=== PATIENT | female | born 1980 | race Caucasian/White ===

== ENCOUNTER 2019-07-09 22:45 | Emergency (ER) | payer SELFPAY ==
--- NOTE | 2019-07-09 23:34 | ER Document Report ---
ED Medical Screen (RME) - General Chief Complaint: Finger Injury Stated Complaint: RIGHT FINGER INJURY Time Seen by Provider: 07/09/19 23:31 Primary Care Provider: ITALO DOYLE MD [Primary Care Provider] - Follow up as needed Mode of Arrival: Ambulatory Information source: Patient Notes: 39-year-old female presents emergency department with right fifth digit finger pain. Reports 4 days ago she went to grab her son grabbed his hoodie and jammed the finger. She reports it was swollen with ecchymosis first and also has erythema by the fingernail. No fingernail injury she reports the erythema was there to begin with. Patient is right-hand dominant. I have greeted and performed a rapid initial assessment of this patient. A comprehensive ED assessment and evaluation of the patient, analysis of test results and completion of the medical decision making process will be conducted by additional ED providers. Dictation of this chart was performed using voice recognition software; therefore, there may be some unintended grammatical errors. TRAVEL OUTSIDE OF THE [place] IN LAST 30 DAYS: No - Related Data Allergies/Adverse Reactions: carbamazepine [From Tegretol] Allergy (Verified 07/09/19 23:30) morphine [Morphine] Allergy (Verified 07/09/19 23:30) Facial edema and rash meperidine HCl [From Demerol] Adverse Reaction (Verified 07/09/19 23:30) Syncope Past Medical History - Social History Frequency of alcohol use: Occasional Renal/ Medical History: Reports: Hx Kidney Stones GI Medical History: Reports: Hx Irritable Bowel Psychiatric Medical History: Reports: Hx Anxiety, Hx Depression Past Surgical History: Reports: Hx Cholecystectomy, Hx Thyroid Surgery, Hx Tonsillectomy - Immunizations Immunizations up to date: No Hx Diphtheria, Pertussis, Tetanus Vaccination: No Physical Exam - Vital signs Vitals: Temp Pulse Resp BP Pulse Ox 98.3 F 81 20 152/89 H 98 07/09/19 22:58 07/09/19 22:58 07/09/19 22:58 07/09/19 22:58 07/09/19 22:58 Course - Vital Signs Vital signs: Temp Pulse Resp BP Pulse Ox 98.3 F 81 20 152/89 H 98 07/09/19 22:58 07/09/19 22:58 07/09/19 22:58 07/09/19 22:58 07/09/19 22:58 Doctor's Discharge - Discharge Referrals: ITALO DOYLE MD [Primary Care Provider] - Follow up as needed
--- NOTE | 2019-07-10 00:16 | RADIOLOGY REPORT (SQ) ---
EXAM DESCRIPTION: XR FINGERS COMPLETED DATE/TME: 07/09/2019 23:32 CLINICAL HISTORY: 39 years Female pain, swelling COMPARISON: None. TECHNIQUE: Right finger, three views FINDINGS: No acute fractures or dislocations are identified. No osseous destructive lesions. No radiopaque foreign object noted. IMPRESSION: No acute fracture is identified.
[2019-07-10] MEDS ORDERED: HYDROCODONE/ACETAMINOPHEN 5-325 MG (6 TAB/ER DISP) PO PRN (01:32)
--- NOTE | 2019-07-10 01:32 | ER Document Report ---
ED General - General Chief Complaint: Finger Injury Stated Complaint: RIGHT FINGER INJURY Time Seen by Provider: 07/09/19 23:31 Primary Care Provider: ITALO DOYLE MD [EMERITUS] - Follow up as needed Mode of Arrival: Ambulatory Information source: Patient Notes: 39-year-old female presents with right fifth finger pain for 4 days. She states that she was playing with her son landing she grabbed his hoodie and he continued to run which snagged her finger. Patient has had pain at the distal phalanx since that time. She has tried Motrin without relief. TRAVEL OUTSIDE OF THE [place] IN LAST 30 DAYS: No - HPI Onset: Other Onset/Duration: Gradual, Persistent Quality of pain: Achy Severity: Mild Associated symptoms: denies: Chest pain, Headache, Nausea, Vomiting, Shortness of breath, Weakness Exacerbated by: Movement Relieved by: Remaining still Similar symptoms previously: No Recently seen / treated by doctor: No - Related Data Allergies/Adverse Reactions: carbamazepine [From Tegretol] Allergy (Verified 07/09/19 23:30) morphine [Morphine] Allergy (Verified 07/09/19 23:30) Facial edema and rash meperidine HCl [From Demerol] Adverse Reaction (Verified 07/09/19 23:30) Syncope Past Medical History - General Information source: Patient - Social History Smoking Status: Current Every Day Smoker Cigarette use (# per day): Yes - 15 Smoking Education Provided: Yes - Smoking cessation counseling was provided for 4 minutes at the bedside Frequency of alcohol use: Occasional Drug Abuse: None Lives with: Family Family History: Arthritis, DM, Hyperlipidemia, Hypertension, Malignancy, Other - chf Patient has suicidal ideation: No Patient has homicidal ideation: No Renal/ Medical History: Reports: Hx Kidney Stones GI Medical History: Reports: Hx Irritable Bowel Psychiatric Medical History: Reports: Hx Anxiety, Hx Depression Past Surgical History: Reports: Hx Cholecystectomy, Hx Thyroid Surgery, Hx Tonsillectomy - Immunizations Immunizations up to date: No Hx Diphtheria, Pertussis, Tetanus Vaccination: No Review of Systems - Review of Systems Notes: REVIEW OF SYSTEMS: CONSTITUTIONAL : Denies fever, chills, or sweats. Denies recent illness. Denies weight loss, recent hospitalizations. EENT: Denies visual changes, eye pain. Denies sore throat, oral lesions, difficulty swallowing. CARDIOVASCULAR: Denies chest pain. Denies palpitations. Denies lower extremity edema. RESPIRATORY: Denies cough. Denies shortness of breath, wheezing. GASTROINTESTINAL: Denies abdominal pain or distention. Denies nausea, vomiting, or diarrhea. Denies blood in vomitus, stools, or per rectum. Denies black, tarry stools. Denies constipation. GENITOURINARY: Denies difficulty urinating, painful urination, frequency, blood in urine, or vaginal discharge. MUSCULOSKELETAL: Denies back or neck pain or stiffness. + joint pain or swelling. SKIN: Denies rash, lesions or sores. HEMATOLOGIC : Denies easy bruising or bleeding. LYMPHATIC: Denies swollen glands. NEUROLOGICAL: Denies confusion or altered mental status. Denies loss of consciousness. Denies dizziness or lightheadedness. Denies headache. Denies weakness or paralysis. Denies problems difficulty with ambulation, slurred speech. Denies sensory loss, numbness, or tingling. Denies seizures. PSYCHIATRIC: Denies anxiety or stress. Denies depression, suicidal ideation, or homicidal ideation. Denies visual or auditory hallucinations. Physical Exam - Vital signs Vitals: Temp Pulse Resp BP Pulse Ox 98.3 F 81 20 152/89 H 98 07/09/19 22:58 07/09/19 22:58 07/09/19 22:58 07/09/19 22:58 07/09/19 22:58 - Notes Notes: PHYSICAL EXAMINATION: GENERAL: Well-appearing, well-nourished and in no acute distress. HEAD: Atraumatic, normocephalic. EYES: Pupils equal round and reactive to light, extraocular movements intact, conjunctiva are normal. ENT: Nares patent, oropharynx clear without exudates. Moist mucous membranes. NECK: Normal range of motion, supple without lymphadenopathy LUNGS: Breath sounds clear to auscultation bilaterally and equal. No wheezes rales or rhonchi. HEART: Regular rate and rhythm without murmurs ABDOMEN: Soft, nontender, nondistended abdomen. No guarding, no rebound. No masses appreciated. Female : deferred Musculoskeletal: Normal range of motion, no pitting or edema. No cyanosis. Right hand exam Symmetrically palpable radial and ulnar pulses. Cap refill less than 2 seconds on all digits. Intact sensation to light touch of the radial, median and ulnar nerves demonstrated by testing in the dorsal webspace of the thumb the distal palmar aspect of the index finger and lateral surface of the fifth finger. Two-point discrimination intact to 5 mm of discrimination in the affected digit. Intact motor function of the radial median and ulnar nerves demonstrated by strength of extension of the isolated distal joint of the index finger, hand paint dipper, and spreading of the second through fifth digits. Intact recurrent median nerve as demonstrated by ability to move down fully through opposition, abduction and flexion. No snuffbox tenderness. NEUROLOGICAL: Cranial nerves grossly intact. Normal speech, normal gait. Normal sensory, motor exams PSYCH: Normal mood, normal affect. SKIN: Warm, Dry, normal turgor, no rashes or lesions noted. Course - Re-evaluation Re-evalutation: 07/10/19 01:30 Finger X-Ray 07/09/19 23:32 IMPRESSION: No acute fracture is identified. Temp Pulse Resp BP Pulse Ox 98.3 F 81 20 152/89 H 98 07/09/19 22:58 07/09/19 22:58 07/09/19 22:58 07/09/19 22:58 07/09/19 22:58 39-year-old female presents with right fifth finger pain after playing with her son 4 days ago and getting her finger caught in his hoodie. She states she has had throbbing pain on the distal phalanx. Vital signs reviewed and within normal limits. Patient does not appear toxic or dehydrated. Right hand exam is significant for full range of motion, no obvious deformity, no neuro deficits. X-rays were obtained and negative for fracture. Patient was placed in a finger splint and discharged home with recommendations to ice. Patient was evaluated and treated as appropriate for the patient's presenting symptoms and complaint, with consideration of any critical or life threatening conditions that may be associated with their obtained history and exam as noted above. All results were discussed with patient. Patient provided the opportunity to ask questions, and express concerns. Patient was educated on treatments based on their presumed diagnosis as noted above. At this time we will discharge the patient with return precautions and follow-up recommendations. Verbal discharge instructions given a the bedside. Medication warnings reviewed. Patient is in agreement with this plan and has verbalized understanding of return precautions. After careful consideration I feel that that patient can be safely discharged from the emergency department, they were advised to followup with a primary care physician in 2-3 days. Dictation on this chart was performed using voice recognition software and may result in unintended grammatical, spelling, syntax or errors. - Vital Signs Vital signs: Temp Pulse Resp BP Pulse Ox 98.3 F 81 20 152/89 H 98 07/09/19 22:58 07/09/19 22:58 07/09/19 22:58 07/09/19 22:58 07/09/19 22:58 - Diagnostic Test Radiology reviewed: Image reviewed, Reports reviewed Discharge - Discharge Clinical Impression: Strain of finger of right hand Condition: Good Disposition: HOME, SELF-CARE Instructions: Sprained Finger ([facility]) Additional Instructions: Follow up with your -94 hours for further care or return to the ED IMMEDIATELY if symptoms worsen or you have any concerns. If you cannot afford to follow up with your primary care physician a list of low cost clinics have been provided at the end of your discharge papers as well. Most prescribed medications have multiple side effects. The safest thing to do is when filling your prescription speak to your pharmacist regarding possible interactions with your normal home medications and over the counter medications such as Ibuprofen, Tylenol, Benadryl. If you experience any symptoms that cause you discomfort or concern you should discontinue the medication immediately and return to the emergency room or call your primary care physician. Forms: Smoking Cessation Education, Return to Work, Elevated Blood Pressure Referrals: ITALO DOYLE MD [EMERITUS] - Follow up as needed
[2019-07-10 01:44] VITALS: BP 152/92
== END 2019-07-10 01:54 | disposition home or self-care (01) ==
LOC: ER 22:45
DX: S69.91XA Unspecified injury of right wrist, hand and finger(s), initial encounter (principal); M79.644 Pain in right finger(s); X50.0XXA Overexertion from strenuous movement or load, initial encounter; F17.210 Nicotine dependence, cigarettes, uncomplicated; Z88.8 Allergy status to other drugs, medicaments and biological substances; Z88.6 Allergy status to analgesic agent; Z88.5 Allergy status to narcotic agent
CPT/HCPCS: 99283; 99406